=== PATIENT | male | born 1965 | race Caucasian/White ===

== ENCOUNTER 2018-07-06 09:47 | Emergency (ER) | payer BC, OTHER ==
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
[2018-07-06] MEDS ORDERED: KETOROLAC TROMETHAMINE INJ/PF 30 MG/1 ML SDV IV ONE (10:37)
[2018-07-06] MEDS ORDERED: HYDROCODONE/ACETAMINOPHEN 5-325 MG (6 TAB/ER DISP) PO PRN (10:37)
[2018-07-06 10:54] VITALS: BP 127/95
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
== END 2018-07-06 11:09 | disposition home or self-care (01) ==
LOC: ER 09:47
DX: S49.92XA Unspecified injury of left shoulder and upper arm, initial encounter (principal); M25.511 Pain in right shoulder; M25.512 Pain in left shoulder; V58.0XXA Driver of pick-up truck or van injured in noncollision transport accident in nontraffic accident, initial encounter; B20 Human immunodeficiency virus [HIV] disease; Z85.72 Personal history of non-Hodgkin lymphomas; F17.210 Nicotine dependence, cigarettes, uncomplicated
CPT/HCPCS: 99284; 96374; 73000; 73030; J1885